=== PATIENT | male | born 2005 | race Caucasian/White ===

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

== ENCOUNTER 2023-04-28 18:55 | Emergency (ER) | payer OTHER ==
[~2023-04-28] VITALS: Ht 175.3 cm; Wt 77.8 kg
[2023-04-28] MEDS ORDERED: ACETAMINOPH W/CODEINE #3 TAB UD PO ONE (21:40)
[2023-04-28] MEDS ORDERED: ACET300T48 PO (21:45)
[2023-04-28] MEDS ORDERED: NORCO 5/325MG TABLET (HOME DOSE PACK) PO ONE (21:50)
[2023-04-28 22:03] VITALS: BP 132/73; TEMP 97.7; O2SAT 99
== END 2023-04-28 22:13 | disposition home or self-care (01) ==
LOC: M ED 18:55
DX: S92.404A Nondisplaced unspecified fracture of right great toe, initial encounter for closed fracture (principal); W22.8XXA Striking against or struck by other objects, initial encounter; Y92.39 Other specified sports and athletic area as the place of occurrence of the external cause; Y93.B3 Activity, free weights; Y99.8 Other external cause status; Z91.012 Allergy to eggs; Z91.010 Allergy to peanuts